=== PATIENT | female | born 1990 | race Caucasian/White ===

== ENCOUNTER 2024-10-24 17:37 | Emergency (ER) | payer MEDICAID | END 2024-10-24 18:46 | disposition home or self-care (01) | LOC: FB.ED 17:37 | DX: S61.217A Laceration without foreign body of left little finger without damage to nail, initial encounter (principal); Z88.2 Allergy status to sulfonamides; Z88.8 Allergy status to other drugs, medicaments and biological substances; Z79.899 Other long term (current) drug therapy; W26.0XXA Contact with knife, initial encounter; Y93.89 Activity, other specified | CPT/HCPCS: 99282 ==